=== PATIENT | female | born 1975 | race Caucasian/White ===

== ENCOUNTER 2017-04-23 18:50 | Emergency (ER) | payer SELFPAY ==
[2017-04-23 18:53] VITALS: BP 132/81; PULSE 78; RESP 20; TEMP 98; O2SAT 99
== END 2017-04-23 19:43 | disposition left against medical advice (07) ==
LOC: NED 18:50
DX: Z03.89 Encounter for observation for other suspected diseases and conditions ruled out (principal)
CPT/HCPCS: 99281